=== PATIENT | male | born 1960 | race African-American/Black ===

== ENCOUNTER 2017-07-22 10:57 | Day surgery (SDC) | payer OTHER ==
[2017-07-21 12:44] VITALS: BMI 27.7
--- NOTE | 2017-07-22 12:14 | HP ---
History & Physical Update - History History: No Change - Physical Physical: No Change - Assessment Assessment: No Change - Plan Plan: No Change
--- NOTE | 2017-07-22 12:19 | OP ---
Operative Note - Note: Operative Date: 07/22/17 Pre-Operative Diagnosis: prostate cancer Operation: prostate cryoablation and cystoscopy Findings: heterogeneous prostate Post-Operative Diagnosis: Same as Pre-op Surgeon: Ted Hogue Anesthesiologist/SEATER GRINDER: Kady Franco Anesthesia: General Estimated Blood Loss (mls): 0 Drains & Tubes with Location: 18 fr mahoney Operative Report Dictated: Yes
[2017-07-22] MEDS ORDERED: MIDAZOLAM HCL 2 MG/2 ML SINGLE DOSE VIAL ONE (12:42)
[2017-07-22] MEDS ORDERED: PROPOFOL 20 ML ONE ×2 (12:42)
[2017-07-22] MEDS ORDERED: GENTAMICIN SO4 80 MG/2 ML VIAL IVPB ONE (12:52)
[2017-07-22] MEDS ORDERED: GENTAMICIN SO4 80 MG/2 ML VIAL ONE (13:02)
[2017-07-22] MEDS ORDERED: ONDANSETRON 4 MG/2 ML VIAL IVPUSH PRN (13:36)
[2017-07-22] MEDS ORDERED: oxyCODONE HCL 5 MG TABLET PO PRN (13:36)
[2017-07-22] MEDS ORDERED: IBUPROFEN 800 MG/8 ML IJ IVPB PRN (13:36)
[2017-07-22] MEDS ORDERED: LACTATED RINGERS SOLUTION 1,000 ML IV SCH (13:45)
[2017-07-22] MEDS ORDERED: ONDANSETRON 4 MG/2 ML VIAL IVPUSH ONE (15:00)
[2017-07-22] MEDS ORDERED: ONDANSETRON 4 MG/2 ML VIAL ONE (15:04)
[2017-07-22] MEDS ORDERED: ACETAMINOPHEN INJECTION 100 ML IVPB ONE (15:14)
[2017-07-22] MEDS ORDERED: ACETAMINOPHEN 1000 MG/100 ML VIAL (NON FORMULARY) IVPB ONE ×2 (15:14→15:15)
[2017-07-22] MEDS ORDERED: IBUPROFEN 800 MG/8 ML IJ IVPB ONE ×2 (15:14→15:29)
[2017-07-22 17:04] VITALS: TEMP 98.6
[2017-07-22 18:55] VITALS: BP 135/80; PULSE 70
--- NOTE | 2017-07-22 19:22 | OP ---
DATE OF OPERATION: 07/22/2017 PREOPERATIVE DIAGNOSIS: Prostate cancer. POSTOPERATIVE DIAGNOSIS: Prostate cancer. PROCEDURE: Prostate cryoablation and cystoscopy. SURGEON: Ted Donato MD ART PREPARATOR: None. ANESTHESIA: General via laryngeal mask. ANESTHESIOLOGIST: Kady Franco MD SPECIMENS: None. CULTURES: None. DRAINS: An 18-[place] Harley catheter. ESTIMATED BLOOD LOSS: Negligible. COMPLICATIONS: None. DESCRIPTION OF PROCEDURE: Patient was brought in the operating room, placed on the operating table in a supine position. After the administration of general anesthesia via laryngeal mask, the sequential compression devices were placed, and intravenous antibiotics were administered. The patient was placed in the dorsal lithotomy position. Perineum was shaved first. Then the perineum and genitals were prepped and draped in usual sterile manner. An 18-[place] Harley catheter was placed per urethra, 10 mL were placed in the balloon, and the bladder was filled with 150 mL of sterile normal saline and clamped. Now, the transrectal ultrasound probe was inserted into the rectum, and transrectal ultrasound planning was done for the cryoablation. Once the plan was determined, the 6 probes were tested and then inserted through the grid into the planned locations in the prostate. Once all six were inserted and measurements taken and set, the Harley catheter was then removed. The temperature sensor probes were placed in Denonvilliers' fascia and external sphincter. Flexible cystoscopy was done, demonstrated no probes that traversed the urethra or into the bladder. The bladder was left full, and the Super Stiff guidewire was inserted through the cystoscope and then the cystoscope removed. The urethral warmer was then placed, and then, the cryoablation was done with 2 freeze/thaw cycles. The probes were removed with the temperature sensors, and the 18-[place] Harley catheter was replaced after leaving the urethral warmer for an additional 10 minutes. Then, it was removed and Harley catheter placed. He tolerated the procedure well. A sterile compressive dressing, 4 x 4, and Tegaderm were placed. He tolerated the procedure well, transferred to recovery in stable condition. TED DONATO M.D. [id number]
== END 2017-07-22 17:30 | disposition home or self-care (01) ==
LOC: JASUSAT 10:57 → EDSEX 12:00 → JASUSAT 17:30
PROVIDERS: ATTEND Urology
PROC: 0V503ZZ Destruction of Prostate, Percutaneous Approach (ICD-10-PCS; principal; 2017-07-22 12:00)
PROC: 0WHR8YZ Insertion of Other Device into Genitourinary Tract, Via Natural or Artificial Opening Endoscopic (ICD-10-PCS; 2017-07-22 12:00)
DX: C61 Malignant neoplasm of prostate (principal)
CPT/HCPCS: 94760